=== PATIENT | female | born 1970 | race African-American/Black ===

== ENCOUNTER 2023-04-19 09:36 | Emergency (ER) | payer OTHER ==
[2023-04-19 09:50] VITALS: BP 131/76; PULSE 77; RESP 18; TEMP 98.2; BMI 35.6
== END 2023-04-19 13:31 | disposition home or self-care (01) ==
LOC: JERFT 09:36 → JER 09:36 → JERFT 13:31
DX: N64.4 Mastodynia (principal); M79.622 Pain in left upper arm
CPT/HCPCS: 76642-TC-LT; 93005; 93010; 93971; 99284-25

== ENCOUNTER 2024-04-16 08:33 | Emergency (ER) | payer OTHER ==
[2024-04-16 08:47] VITALS: RESP 16; BMI 29.8
[2024-04-16] MEDS ORDERED: METOCLOPRAMIDE HCL INJECTION 10 MG/2 ML VIAL ONE (09:44)
[2024-04-16] MEDS ORDERED: diazePAM 5 MG TABLET ONE (09:44)
[2024-04-16] MEDS: SODIUM CHLORIDE 0.9% 500 ML INFUS.BAG IV ONE (10:08)
[2024-04-16] MEDS: diazePAM 5 MG TABLET PO ONE (10:09)
[2024-04-16] MEDS: METOCLOPRAMIDE HCL INJECTION 10 MG/2 ML VIAL IVPB ONE (10:09)
[2024-04-16 10:28] LABS: BASO % 0.8 % (0-2.0); EOS % 4.2 % (0-4.5); HEMATOCRIT 44.1 % (32.4-45.2); HEMOGLOBIN 14.5 GM/dL (10.7-15.3); LYMPH % 38.2 % (8-40); MCH 27.7 pg (25.7-33.7); MCHC 32.9 g/dl (32.0-36.0); MEAN CELL VOLUME 84.1 fl (80-96); MEAN PLT VOLUME 7.8 fl (7.5-11.1); MONO % 7.1 % (3.8-10.2); NEUT % 49.7 % (42.8-82.8); PLATELET COUNT 321 10^3/uL (134-434); RBC 5.24 M/mm3 (3.60-5.2); RDW 13.7 % (11.6-15.6); WHITE BLOOD COUNT 6.3 K/mm3 (4.0-10.0)
[2024-04-16 11:08] LABS: POTASSIUM 4.2 mmol/L (3.5-5.1)
[2024-04-16 11:09] LABS: CALCIUM 9.6 mg/dL (8.5-10.1)
[2024-04-16 11:10] LABS: ALBUMIN 3.8 g/dl (3.4-5.0); BLOOD UREA NITROGEN 9.5 mg/dL (7-18); MAGNESIUM 1.9 mg/dL (1.8-2.4)
[2024-04-16 11:15] LABS: BILIRUBIN,TOTAL 0.9 mg/dL (0.2-1); TOT PROT 8.2 g/dl (6.4-8.2)
[2024-04-16 11:42] LABS: PH,URINE 6.5 (5.0-8.0); URINE APPEARANCE CLEAR; URINE BILIRUBIN NEGATIVE (NEGATIVE); URINE COLOR YELLOW; URINE GLUCOSE (UA) 1+ (NEGATIVE); URINE KETONE NEGATIVE (NEGATIVE); URINE LEUK ESTERASE NEGATIVE (NEGATIVE); URINE NITRITE NEGATIVE (NEGATIVE); URINE PROTEIN NEGATIVE (NEGATIVE); URINE UROBILINOGEN 0.2 mg/dL (0.2-1.0)
[2024-04-16 11:57] LABS: HIV INTERPRETATION NEGATIVE (NEGATIVE)
[2024-04-16] MEDS ORDERED: MECLIZINE HCL 25 MG TABLET (FP) ONE (12:38)
[2024-04-16] MEDS ORDERED: LIDOCAINE 4% PATCH TP ONE (12:38)
[2024-04-16] MEDS: LIDOCAINE 4% PATCH TP ONE (12:42)
[2024-04-16] MEDS: MECLIZINE HCL 25 MG TABLET (FP) PO ONE (12:42)
[2024-04-16 13:05] VITALS: BP 122/80; PULSE 74; TEMP 98.1
[2024-04-16] MEDS ORDERED: LIDOCAINE PATCH REMOVAL MC ONE (22:00)
== END 2024-04-16 13:46 | disposition home or self-care (01) ==
LOC: JER 08:33
PROC: 3E033GC Introduction of Other Therapeutic Substance into Peripheral Vein, Percutaneous Approach (ICD-10-PCS; principal; 2024-04-16)
DX: R42 Dizziness and giddiness (principal); R11.2 Nausea with vomiting, unspecified
CPT/HCPCS: 36415; 70450-TC; 80053; 81003; 82962; 83735; 85025; 86803; 87086; 87389; 99284-25